=== PATIENT | female | born 2000 | race Hispanic/Latino ===

== ENCOUNTER → 2018-10-31 | Day surgery (SDC) | payer OTHER ==
[~2018-10-31] MED LIST: BUPIVACAINE HCL 0.5% INJ 30 ML VIAL INJ ONE; CEFAZOLIN SOD 1 GM/NS 50ML 50 ML IV ONE; DESFLURANE 240 ML BTL INH ONE; DEXAMETHASONE SOD PHOS INJ 4 MG/ML VIAL ONE; FENTANYL CITRATE/PF 100MCG/2 ML INJ ONE; KETOROLAC TROMETHAMINE 30 MG/ML VIAL ONE; LIDOCAINE HCL 2% LOCAL INJ 5 ML SDV VIAL INJ ONE; MEPERIDINE HCL INJ 25 MG/ML VIAL ONE; MIDAZOLAM HCL 2 MG/2 ML VIAL ONE; ONDANSETRON HCL INJ 2MG/ML 2ML 2 MG/ML VIAL ONE; PROPOFOL IV EMULSION 10 MG/ML 20 ML VIAL ONE
--- NOTE | 2018-10-31 08:05 | Operative Report ---
DATE OF PROCEDURE: 10/31/2018 SURGEON: Bernabe Ceja MD PARIMUTUEL CASHIER: Adán Myrick, Certified PA. PREOPERATIVE DIAGNOSIS: Recurrent ganglion cyst, right wrist. POSTOPERATIVE DIAGNOSIS: Recurrent ganglion cyst, right wrist. PROCEDURE: Revision right ganglion cyst excision. INDICATIONS: The patient is a 17-year-old lady, who has a small recurrent ganglion over the volar aspect of her right wrist. The findings and options have been discussed with the patient. She feels the symptoms compromise her quality of life and she would like to have a revision excision of the cyst. The risks and benefits were explained. She states she understands and wishes to proceed. PROCEDURE IN DETAIL: The patient was brought to the operating room and placed under general anesthetic. Her right upper extremity was prepped and draped in a sterile manner. A preoperative time-out was performed. The extremity was exsanguinated and the proximal tourniquet was inflated to 250 mmHg. The previous incision was opened. The ganglion cyst was embedded in scar tissue. The radial artery was teased away from the ulnar aspect of the cyst. The cyst tract down to the flexor carpi radialis tendon sheath. This was embedded in moderate scar tissue. This was very carefully debrided and removed. There was no persistent stalk. The specimen was sent to pathology. The wound was irrigated and closed with interrupted nylon stitches. A 2 mL of 0.5% Marcaine without epinephrine was injected around the incision. A sterile bandage and a volar splint was applied. The patient was extubated and transported to the recovery room in stable condition. There was no blood loss and all needle and sponge counts were correct. Bernabe Ceja MD DR/TRESA /[id number]
[2018-10-31 08:40] VITALS: BP 108/63
== END | disposition home or self-care (01) ==
LOC: OR 05:00
PROVIDERS: ATTEND Specialist
DX: M67.431 Ganglion, right wrist (principal); F41.9 Anxiety disorder, unspecified
CPT/HCPCS: 25112; 81025; 88304; J0690; J1100; J1885; J2001; J2175; J2250; J2405; J2704; J3010